=== PATIENT | male | born 1995 | race Two or more races ===

== ENCOUNTER 2022-10-09 10:27 | Outpatient (AMB) | payer OTHER, MEDICAID, SELFPAY ==
[2022-10-09 10:32] VITALS: BP 128/74; PULSE 84; RESP 12; TEMP 36.6; O2SAT 99; BMI 32.7
--- NOTE | 2022-10-09 10:32 | A.OFFPC_ITS ---
Vital Signs 10/09/22 10:32 Height 6 ft 1 in Weight 248 lb BMI 32.7 BP 128/74 Blood Pressure Location Lt brachial Position Sitting Respiration 12 Pulse 84 Pulse Source Pulse Oximeter Temp 97.9 F Temp Source Temporal Artery Scan Pulse Oximetry (%) 99 Oxygen Delivery Method Room Air Intake Visit Reasons: chest pain [facility] 09/13 Intake Note: Patient states that after work on the 09/13 he felt a tightening sensation starting from his left hand working its way up his arm. Patient states that the hospital gave him some medicine through IV to help with the tightness and pressure he was feeling but states it didn't work. Patient states that the hospital wrote him off as him having anxiety being the cause of what he was feeling. Patient states that his left arm feels drained . Patient would like a referral to cardiology and will be needing PCP to fill out medical leave papers. Project Associate Required: No Accompanied by: Self / Same As Patient Allergies No Known Allergies Allergy (Verified 10/09/22 14:46) Tobacco use date assessed: 10/09/22 Dental Screening Dental Screen Date: 10/09/22 Did you have a dental visit in the last 12 months?: No Did you have a dental problem in the last 6 months where you did not have access to dental care?: No Was dental information given to patient?: Yes HPI HPI Comments History of Present Illness Details 26-year-old male presents for ED visit follow-up. He was evaluated at [facility] ED on 09/12/2022 for chest pain. He was diagnosed with chest pain and anxiety attack. He was discharged home. Review of ED documentation revealed unremarkable labs, chest x-ray, and EKG. He reports continued tightness to his left upper chest and shoulder since his discharged from the ED. The pain sometimes improves with stretching of his left upper arm. He notes that he has not been able to return to work following ED discharge. He denies chest pain, MACKENZIE. He established care on . He was referred to a therapist; he notes he was contacted but never followed up. [facility] Medical History (Updated 10/09/22 @ 12:08 by Buddy Hardwick CNP) Acid reflux Depression Severe anxiety Surgical History No pertinent past surgical history Family History Mother No family history of mental disorder Asthma Hypertension High cholesterol Maternal Grandmother Hypertension Other Mental health disorder Substance abuse Social History Household Members: Family Housing: Apartment Alcohol intake: current Alcohol intake frequency: holidays/special occasions only Alcohol type: beer Patient Tobacco Use Status: Never used Tobacco e-Cigarette/Vaping Use: Former Use Substance Use Type: Marijuana Advance Directives: No Advance Directives Information Provided: Yes service: No Current occupational status: employed Current occupation: [employer] Cognitive needs: No Hearing needs: Yes Vision needs: No Questionnaire PHQ-9 Over the last 2 weeks, how often have you been bothered by any of the following problems? 1. Little interest or pleasure in doing things: nearly every day 2. Feeling down, depressed, or hopeless: more than half the days 3. Trouble falling or staying asleep, or sleeping too much: more than half the days 4. Feeling tired or having little energy: nearly every day 5. Poor appetite or overeating: several days 6. Feeling bad about yourself - or that you are a failure or have let yourself or your family down: not at all 7. Trouble concentrating on things, such as reading the newspaper or watching television: not at all 8. Moving or speaking so slowly that other people could have noticed. Or the opposite - being so fidgety or restless that you have been moving around a lot more than usual: not at all 9. Thoughts that you would be better off or of hurting yourself in some way: not at all Total score: 11 Depression Screening Interpretation: Positive Depression Screening Follow-up: Existing condition and Declines treatment Source: Developed by Drs. Dustin Brown, Jessica Vallejo, Pavan Colin and colleagues, with an educational kale from [employer]. Thrive Questionnaire Date Thrive assessed: 04/26/22 ISAURA-7 AMB Questionnaire ISAURA-7 Date ISAURA - 7 assessed: 10/09/22 Feeling nervous, anxious, or on edge: 3 = Nearly every day Not being able to stop or control worryin = More than half the days Worrying too much about different things: 3 = Nearly every day Trouble relaxin = More than half the days Being so restless that it is hard to sit still: 0 = Not at all Becoming easily annoyed or irritable: 2 = More than half the days Feeling afraid as if something awful might happen: 3 = Nearly every day Total ISAURA-7 score (0-4 normal; 5-9 mild; 10-14 moderate; 15-21 severe): 15 Source: Developed by Drs. Dustin Brown, Jessica Vallejo, Pavan Colin and colleagues, with an educational kale from [employer]. Review of Systems Const Details: Const Denies chills, Denies fatigue, Denies fever(s), Denies headache(s) and Denies weakness ENT Denies dizziness and Denies headache(s) Card Reports chest tightness, Denies chest pain, Denies lightheadedness, Denies dyspnea and Denies other (Palpitations) Resp Denies cough, Denies dyspnea, Denies wheezing and Denies other ( shortness of breath) GI Denies abdominal pain, Denies melena, Denies hematochezia, Denies change in bowel habits, Denies dyspepsia and Denies nausea Denies hematuria and Denies dysuria Musc Denies abnormal gait, Denies myalgias, Denies arthralgias, Denies numbness and Denies tingling Skin/Breast Denies rash, Denies unusual bruising and Denies wounds Neuro Denies abnormal gait, Denies dizziness, Denies headache(s), Denies memory loss, Denies numbness, Denies Sensory deficit (Neuro), Denies tingling and Denies weakness Psych Reports anxiety and Reports depression, Denies memory loss Endo Denies fatigue Aller/Immun Denies wheezing Physical exam (Primary Care) Vital Signs: Last Vital Signs Temp 97.9 F 10/09/22 10:32 Pulse 84 10/09/22 10:32 Resp 12 10/09/22 10:32 BP 128/74 10/09/22 10:32 Pulse Ox 99 10/09/22 10:32 Oxygen Delivery Method Room Air 10/09/22 10:32 BMI result Body Mass Index 32.7 Tobacco/Smoking Status: Tobacco use Status Tobacco use date assessed 10/09/22 10/09/22 10:46 Patient Tobacco Use Status Never used Tobacco 10/09/22 10:46 e-Cigarette/Vaping Use Former Use 10/09/22 10:46 PHQ-9: PHQ-9 Score PHQ-9: Total score 11 10/09/22 11:59 Depression Screening Interpretation: Positive Depression Screening Follow-up: Existing condition and Declines treatment Thrive Assessment: Date of Thrive Assessment Date Thrive assessed 04/26/22 10/09/22 10:46 Const Other: General: no acute distress and well developed Nutritional Appearance: well nourished Orientation/consciousness: patient oriented x3 HENMT Head: Yes normocephalic and Yes atraumatic Eyes General: appearance normal, both eyes and all related structures Pupils: Equal, round and reactive pupils present EOM: EOMs intact bilaterally Resp Effort & Inspection: normal respiratory effort Auscultation: clear to auscultation bilaterally Cardio Rate: regular rate Rhythm: regular rhythm Heart sounds: S1 normal heart sound present, S2 normal heart sound present, no gallops, no murmurs and no rubs GI Palpation (GI): No Abdominal aortic bruit present, Soft to palpation, nontender, No hepatosplenomegaly present and No Rebound tenderness present Auscultation: normal bowel sounds General: Yes no CVA tenderness Back/Spine/Pelvis Back: no CVA tenderness Cervical Spine: cervical ROM normal and No Cervical spine tenderness Thoracic/Lumbar Spine: thoraco-lumbar ROM normal, No pain with thoraco-lumbar ROM, No thoracic spinal tenderness and No lumbar spinal tenderness Extrem General: Yes normal to inspection, No edema and No calf tenderness Skin General: warm and dry. Normal skin color. Normal skin turgor Lesions: no lesions Rashes: no rashes Trauma: no lacerations or abrasions Wounds: no wounds Nails: normal Neuro General: patient oriented x3, gait normal and no focal neuro deficit Cranial nerves: Yes Equal, round and reactive pupils present Cognition (Neuro): normal cognition Gait exam (Neuro): Normal gait present Sensory Exam: No Sensory deficit (Neuro) Psych Affect: normal affect Assessment and Plan Assessment & Plan (1) Chest tightness: Code(s): R07.89 - Other chest pain Plan: 26-year-old male presents for ED visit follow-up. He was evaluated at [facility] ED on 09/12/2022 for chest pain. He was diagnosed with chest pain and anxiety attack. He was discharged home. Review of ED documentation revealed unremarkable labs, chest x-ray, and EKG. He reports continued tightness to his left upper chest and shoulder since his discharged from the ED. The pain sometimes improves with stretching of his left upper arm. He notes that he has not been able to return to work following ED discharge. He denies chest pain, MACKENZIE. EKG revealed normal sinus rhythm, CO depression, and widespread ST elevation Advised to immediately go to [facility] for further evaluation and treatment The MA called and gave report to [facility] and that the patient was on his way Dr. Westbrook consulted about this case and agreed with the plan. (2) Anxiety and depression: Code(s): F41.9 - Anxiety disorder, unspecified; F32.A - Depression, unspecified Plan: PHQ-9 and ISAURA-7 scores revealed moderate anxiety and severe depression respectively Declined treatment and therapy at this time Encouraged to inform his PCP if he changes mind on treatment Routine exercise encouraged Follow-up in 2-4 weeks or return sooner with worsening or new symptoms Verbalized understanding and agreed with treatment plan Coding Level of Care Code Est Pt Level 4 (47796) Diagnoses Chest tightness R07.89 Anxiety and depression F41.9; F32.A Time Spent (min) 35
== END 2022-10-09 12:46 | disposition home or self-care (01) ==
PROVIDERS: PCP Nurse Practitioner Family; Visit Provider Nurse Practitioner Family
DX: R07.89 Other chest pain (principal); F41.9 Anxiety disorder, unspecified; F32.A Depression, unspecified
CPT/HCPCS: 99214

== ENCOUNTER 2022-10-09 13:50 | Emergency (ER) | payer OTHER, MEDICAID, SELFPAY ==
--- NOTE | ~2022-10-09 | XR_ITS ---
EXAMINATION: XR CHEST CLINICAL INFORMATION: Left shoulder/chest pain radiating to heart area COMPARISON: None available. TECHNIQUE: 2 views of the chest were obtained. FINDINGS: No significant abnormality is noted involving the heart, lungs, mediastinum, bony thorax or soft tissues. XR/XR chest 2V IMPRESSION: No acute cardiopulmonary disease.
--- NOTE | 2022-10-09 13:52 | ECG_ITS ---
Test Reason : CHEST PAIN Blood Pressure : / mmHG Vent. Rate : 084 BPM Atrial Rate : 084 BPM P-R Int : 140 ms QRS Dur : 086 ms QT Int : 328 ms P-R-T Axes : 074 021 050 degrees QTc Int : 387 ms Normal sinus rhythm Normal ECG No previous ECGs available Referred By: Generic ED Physician Electronically Signed By:Sunday Hdz
--- NOTE | 2022-10-09 14:46 | ED.GENADULT ---
HPI - General Adult General Chief complaint: General Medical Stated complaint: abnormal ekg Related Data Home Medications Medication Instructions Recorded Confirmed No Known Home Meds 04/26/22 04/26/22 Allergies Allergy/AdvReac Type Severity Reaction Status Date / Time No Known Allergies Allergy Verified 10/09/22 14:46 [facility] Past Medical History Medical History (Updated 10/12/22 @ 19:38 by ALONA Wright) Acid reflux Depression Severe anxiety Surgical History No pertinent past surgical history Family History Family History Mother No family history of mental disorder Asthma Hypertension High cholesterol Maternal Grandmother Hypertension Other Mental health disorder Substance abuse Social History Social History Household Members: Family Housing: Apartment Alcohol intake: current Alcohol intake frequency: holidays/special occasions only Alcohol type: beer Patient Tobacco Use Status: Never used Tobacco e-Cigarette/Vaping Use: Former Use Substance Use Type: Marijuana Advance Directives: No Advance Directives Information Provided: Yes service: No Current occupational status: employed Current occupation: [employer] Cognitive needs: No Hearing needs: Yes Vision needs: No Physical Exam ED Vital Signs: BMI result Body Mass Index 32.3 Course Course Course Narrative: This is an RME: Additional HPI, ROS, PE not included below will be deferred to primary provider. This is a [id number]-male presenting to the emergency department with complaints of continued numbness in left arm and chest x 1 month, and shortness of breath. He was rushed to the [facility] in August had left tightness in his left arm radiating into his left chest. Went to [facility], and was told it was due to his anxiety, workup at hospital was normal. He went to his PCP today due to continued numbness/tingling in his left arm. Unable to work d/t his symptoms. Pt was seen at his PCP and was told that his EKG revealed acute pericarditis and was told to come to the ER for further evaluation. VSS. Plan: EKG, chest xray, labs ordered. Reevaluation(s) Reevaluation #1: Patient eloped prior to be fully evaluated. Medical Decision Making Lab Data 10/09/22 16:02 10/09/22 16:02 Labs: Lab Results 10/09/22 10/09/22 10/09/22 Range/Units 16:02 16:02 16:02 WBC 7.7 (4.8-10.8) X10*3/uL RBC 5.45 (4.60-5.80) X10*6/uL Hgb 16.0 (14.0-18.0) g/dl Hct 48.9 (42.0-52.0) % MCV 89.7 (80.0-98.0) fL MCH 29.4 (27.0-33.0) pg MCHC 32.7 (31.0-36.0) g/dl RDW 12.2 (11.0-16.0) % Plt Count 242 (160-400) X10*3/uL MPV 11.2 (9.4-12.4) fL Immature Gran % (Auto) 0.3 (0.0-0.4) % Neut % (Auto) 73.7 H (45-73) % Lymph % (Auto) 18.4 L (20-40) % [place] % (Auto) 6.7 (2-11) % Eos % (Auto) 0.3 (0-4) % Baso % (Auto) 0.6 (0-2) % Lymph # (Auto) 1.4 (1.2-4.9) X10*3/uL [place] # (Auto) 0.5 (0.1-1.2) X10*3/uL Eos # (Auto) 0.0 (0.0-0.4) X10*3/uL Baso # (Auto) 0.1 (0.0-0.2) X10*3/uL Abs Immat Gran (auto) 0.02 (0.00-0.03) X10*3/uL Absolute Neuts (auto) 5.7 (2.0-8.3) x10*3/uL Absolute Nucleated RBC 0.000 (0.0-0.012) X10*3/uL Nucleated RBC % (auto) 0.0 (0.0-0.2) /100WBC Sodium 138 (135-145) mmol/L Potassium 4.2 (3.3-5.1) mmol/L Chloride 103 (96-108) mmol/L Carbon Dioxide 26 (22-29) mmol/L Anion Gap 13 (12-20) BUN 12 (9-16) mg/dL Creatinine 1.11 (0.5-1.4) mg/dL Estim Creat Clear Calc 132.9 Estimated GFR > 60 Random Glucose 101 (60-115) mg/dL Calcium 9.9 (8.4-10.2) mg/dL Magnesium 2.0 (1.6-2.6) mg/dL Total Bilirubin 0.7 (0.0-1.0) mg/dL Direct Bilirubin 0.3 (0.0-0.5) mg/dL AST 20 (5-37) U/L ALT 25 (0-40) U/L Alkaline Phosphatase 86 (39-117) U/L Troponin I High Sens < 2.7 (<3.5-35.0) ng/L Total Protein 8.3 H (6.5-8.0) g/dL Albumin 4.8 (3.5-5.0) g/dL COVID-19 ([facility]) (Negative) COVID-19 Clin Com 10/09/22 Range/Units 16:02 WBC (4.8-10.8) X10*3/uL RBC (4.60-5.80) X10*6/uL Hgb (14.0-18.0) g/dl Hct (42.0-52.0) % MCV (80.0-98.0) fL MCH (27.0-33.0) pg MCHC (31.0-36.0) g/dl RDW (11.0-16.0) % Plt Count (160-400) X10*3/uL MPV (9.4-12.4) fL Immature Gran % (Auto) (0.0-0.4) % Neut % (Auto) (45-73) % Lymph % (Auto) (20-40) % [place] % (Auto) (2-11) % Eos % (Auto) (0-4) % Baso % (Auto) (0-2) % Lymph # (Auto) (1.2-4.9) X10*3/uL [place] # (Auto) (0.1-1.2) X10*3/uL Eos # (Auto) (0.0-0.4) X10*3/uL Baso # (Auto) (0.0-0.2) X10*3/uL Abs Immat Gran (auto) (0.00-0.03) X10*3/uL Absolute Neuts (auto) (2.0-8.3) x10*3/uL Absolute Nucleated RBC (0.0-0.012) X10*3/uL Nucleated RBC % (auto) (0.0-0.2) /100WBC Sodium (135-145) mmol/L Potassium (3.3-5.1) mmol/L Chloride (96-108) mmol/L Carbon Dioxide (22-29) mmol/L Anion Gap (12-20) BUN (9-16) mg/dL Creatinine (0.5-1.4) mg/dL Estim Creat Clear Calc Estimated GFR Random Glucose (60-115) mg/dL Calcium (8.4-10.2) mg/dL Magnesium (1.6-2.6) mg/dL Total Bilirubin (0.0-1.0) mg/dL Direct Bilirubin (0.0-0.5) mg/dL AST (5-37) U/L ALT (0-40) U/L Alkaline Phosphatase (39-117) U/L Troponin I High Sens (<3.5-35.0) ng/L Total Protein (6.5-8.0) g/dL Albumin (3.5-5.0) g/dL COVID-19 ([facility]) Negative (Negative) COVID-19 Clin Com See Note Discharge Plan Discharge Clinical Impression: Abnormal ECG Patient Disposition: Elopement Prescriptions: No Action No Known Home Meds Discharge Date/Time: 10/09/22 22:34
[2022-10-09 14:47] VITALS: BP 139/79; PULSE 74; RESP 16; TEMP 36.6; O2SAT 97; BMI 32.3
[2022-10-09 16:06] LABS: MANUAL DIFF FLAG NO
[2022-10-09 16:09] LABS: Basophils Absolute Auto 0.1 X10*3/uL (0.0-0.2); Basophils Percent Auto 0.6 % (0-2); Eosinophils Percent Auto 0.3 % (0-4); Hematocrit 48.9 % (42.0-52.0); Imm Gran Abs Auto 0.02 X10*3/uL (0.00-0.03); Imm Gran Pct Auto 0.3 % (0.0-0.4); Lymphocytes Absolute Auto 1.4 X10*3/uL (1.2-4.9); Lymphocytes Percent Auto 18.4 % (20-40); Mean Corpuscular HGB Conc 32.7 g/dl (31.0-36.0); Mean Corpuscular Hemoglobin 29.4 pg (27.0-33.0); Mean Corpuscular Volume 89.7 fL (80.0-98.0); Mean Platelet Volume 11.2 fL (9.4-12.4); Monocytes Absolute Auto 0.5 X10*3/uL (0.1-1.2); Monocytes Percent Auto 6.7 % (2-11); Neutrophils Absolute Auto 5.7 x10*3/uL (2.0-8.3); Neutrophils Percent Auto 73.7 % (45-73); Platelet Count 242 X10*3/uL (160-400); Red Blood Count 5.45 X10*6/uL (4.60-5.80); Red Cell Distribution Width 12.2 % (11.0-16.0); White Blood Count 7.7 X10*3/uL (4.8-10.8)
[2022-10-09 16:25] LABS: COVID-19 Test Negative (Negative); IDNOW Serial# 08D9AD1C
[2022-10-09 16:37] LABS: Troponin-I High Sensitivity < 2.7 ng/L (<3.5-35.0)
[2022-10-09 17:06] LABS: Alanine Aminotransferase 25 U/L (0-40); Albumin Level 4.8 g/dL (3.5-5.0); Alkaline Phosphatase 86 U/L (39-117); Anion Gap 13 (12-20); Aspartate Amino Transferase 20 U/L (5-37); Bilirubin Direct 0.3 mg/dL (0.0-0.5); Bilirubin Total 0.7 mg/dL (0.0-1.0); Blood Urea Nitrogen 12 mg/dL (9-16); Calcium 9.9 mg/dL (8.4-10.2); Carbon Dioxide 26 mmol/L (22-29); Chloride 103 mmol/L (96-108); Creatinine Clr Calc Pharmacy 132.9; Estimated Glomerular Filt Rate > 60; Glucose Random 101 mg/dL (60-115); Potassium 4.2 mmol/L (3.3-5.1); Sodium 138 mmol/L (135-145); Total Protein 8.3 g/dL (6.5-8.0)
== END 2022-10-09 22:34 | disposition left against medical advice (07) ==
PROVIDERS: Physician Assistant Medical; Emergency Provider Emergency Medicine; PCP Nurse Practitioner Family
DX: R94.31 Abnormal electrocardiogram [ECG] [EKG] (principal); Z20.822 Contact with and (suspected) exposure to COVID-19; F41.9 Anxiety disorder, unspecified; Z87.891 Personal history of nicotine dependence; F12.90 Cannabis use, unspecified, uncomplicated
CPT/HCPCS: 36415; 71046; 80048; 80076; 83735; 84484; 85025; 87635; 93005; 99283

== ENCOUNTER → 2022-10-09 13:52 | Outpatient (BNV) | payer OTHER, MEDICAID, SELFPAY | PROVIDERS: PCP Nurse Practitioner Family; Visit Provider Internal Medicine Cardiovascular Disease | DX: R07.9 Chest pain, unspecified (principal) | CPT/HCPCS: 93010 ==

== ENCOUNTER 2022-11-01 10:07 | Outpatient (AMB) | payer OTHER, MEDICAID, SELFPAY ==
--- NOTE | 2022-11-01 10:10 | MHC.OFFVIS ---
Intake Vital Signs 11/01/22 10:11 Height 6 ft 1 in Weight 244 lb 4.355 oz BMI 32.2 BP 110/78 Blood Pressure Location Lt brachial Position Sitting Pulse 92 Pulse Source Pulse Oximeter Intake Visit Reasons: [facility]IV[facility] [place]/CHEST PAIN ABNORMAL EKG Intake Note: New patient visit after recent visit to [facility] [place] for chest pain and abnormal EKG. 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 In August he went to [facility] with sudden onset left-sided arm pressure like feeling as well as chest tightness. He was also feeling some weakness and not sensation the left leg. He is saying that he was ruled out and was told that no obvious cause is found and this is anxiety. Since then he has persistent left arm discomfort which is present all the time. He is not physically active. He smokes marijuana occasionally. No other drug abuse. Occasionally walks his dog and does not get any symptoms while walking the dog. The left arm discomfort is present all the time and has been persistently there. He feels that left side of his body is weaker than the right side but has never seen a neurologist before. [facility] Medical History (Updated 11/01/22 @ 10:43 by Sunday Hdz MD) Acid reflux Depression Severe anxiety Surgical History No pertinent past surgical history Family History Mother No family history of mental disorder Asthma Hypertension High cholesterol Maternal Grandmother Hypertension Other Mental health disorder Substance abuse Social History (Updated 11/01/22 @ 10:15 by TANGELA Mccord) Household Members: Family Housing: Apartment Alcohol intake: current Alcohol intake frequency: holidays/special occasions only Alcohol type: beer Patient Tobacco Use Status: Never used Tobacco e-Cigarette/Vaping Use: Former Use Substance Use Type: Marijuana service: No Current occupational status: employed Current occupation: [employer] Cognitive needs: No Hearing needs: Yes Vision needs: No Review of Systems Const Denies weakness Eyes Denies loss of vision ENT Denies dizziness Card Denies chest pain, Denies chest pain with activity, Denies syncope, Denies rapid heart rate, Denies pedal edema, Denies edema, Denies leg edema, Denies lightheadedness, Denies palpitations, Denies dyspnea, Denies dyspnea on exertion and Denies orthopnea Resp Denies cough, Denies dyspnea, Denies dyspnea on exertion and Denies wheezing GI Denies hematochezia and Denies change in stool character Denies hematuria, Denies dysuria and Denies urinary frequency Musc Denies abnormal gait, Denies muscle cramps, Denies muscle weakness, Denies numbness, Denies radiating pain into limb and Denies tingling Skin/Breast Denies nail changes and Denies rash Neuro Denies Abnormal speech present, Denies abnormal gait, Denies dizziness, Denies syncope, Denies loss of vision, Denies memory loss, Denies numbness, Denies tingling and Denies weakness Psych Denies depression and Denies memory loss Endo Denies palpitations Aller/Immun Denies wheezing Physical Exam Vital Signs: Last Vital Signs Pulse 92 11/01/22 10:11 BP 110/78 11/01/22 10:11 BMI result Body Mass Index 32.2 GENERAL APPEARANCE: in no acute distress, pleasant. NECK: no carotid bruit, no jugular venous distention. SKIN: no suspicious lesions, warm and dry. HEART: no murmurs, regular rate and rhythm. LUNGS: clear to auscultation bilaterally. ABDOMEN: soft, nontender. EXTREMITIES: no edema. PERIPHERAL PULSES: equal. NEUROLOGIC: No gross deficits, AAO X 3 Neuro Speech: No Abnormal speech present Assessment & Plan Assessment & Plan (1) Arm pain, left: Code(s): M79.602 - Pain in left arm (2) Chest tightness: Code(s): R07.89 - Other chest pain Plan Pleasant 26 year gentleman who is here for assessment of chest discomfort and arm discomfort. Chest discomfort is non anginal and has resolved. Left arm discomfort is present for more than 2 months at this point and is persistent. Is denying any neck injury or pain. He also feels the left side of his body is weaker than the right side. By my exam there is no obvious findings. I am going to do some basic workup including CPK level just to rule out any muscular issue. Will also check a CRP to rule out any inflammatory process. Will check an echocardiogram to rule out structural heart issues. I have reassured him about the chest discomfort. For his left-sided subjective weakness he will follow-up with primary and may require further workup via Neurology if deemed appropriate. Thank you for allowing me to participate in the care of your patient. Please feel free to contact me if you have any questions. Orders: Orders CA echo transthoracic complete Today R07.89 - Other chest pain Creatine Kinase Total Today M79.602 - Pain in left arm CRP High Sensitivity Today M79.602 - Pain in left arm Coding Level of Care Code New Pt Level 4 (97258) Diagnoses Arm pain, left M79.602 Chest tightness R07.89
[2022-11-01 10:11] VITALS: BP 110/78; PULSE 92; BMI 32.2
== END 2022-11-01 10:43 | disposition home or self-care (01) ==
PROVIDERS: PCP Nurse Practitioner Family; Visit Provider Internal Medicine Cardiovascular Disease
DX: M79.602 Pain in left arm (principal); R07.89 Other chest pain
CPT/HCPCS: 99214

== ENCOUNTER → 2022-11-01 10:07 | Outpatient (BNVA) | payer OTHER, MEDICAID, SELFPAY | PROVIDERS: PCP Nurse Practitioner Family; Visit Provider Internal Medicine Cardiovascular Disease ==

== ENCOUNTER 2023-05-18 10:26 | Outpatient (AMB) | payer OTHER, SELFPAY ==
[2023-05-18 10:33] VITALS: BP 126/80; PULSE 93; RESP 13; TEMP 36.4; O2SAT 97; BMI 31.5
--- NOTE | 2023-05-18 10:33 | A.OFFPC_ITS ---
Vital Signs 05/18/23 10:33 Height 6 ft 1 in Weight 239 lb BMI 31.5 BP 126/80 Blood Pressure Location Rt brachial Position Sitting Respiration 13 Pulse 93 Pulse Source Pulse Oximeter Temp 97.5 F Temp Source Temporal Artery Scan Pulse Oximetry (%) 97 Oxygen Delivery Method Room Air Intake Visit Reasons: ED [facility] 04/11/23-Diarrhea/Blood in Stool Supply Technician Required: No Accompanied by: Self / Same As Patient Allergies No Known Allergies Allergy (Verified 05/18/23 10:56) Medication List - Last Reconciled 05/18/23 by Buddy Hardwick CNP No Known Home Meds Tobacco use date assessed: 05/18/23 Dental Screening Dental Screen Date: 05/18/23 Did you have a dental visit in the last 12 months?: Yes Did you have a dental problem in the last 6 months where you did not have access to dental care?: No Was dental information given to patient?: Patient has dentist HPI HPI Comments History of Present Illness Details 27-year-old male presents for a follow-u p visit He notes that he was evaluated at an urgent care earlier this month for blood in his stool. He notes that stool culture was positive for E coli and he was advised to go to ED. He states that he was evaluated at [facility] ED on 05/11/2023; E coli was confirmed and was given Ibuprofen for abdominal cramps. He notes that he has had intermittent suprapubic abdominal cramps and dark red blood in his stool for the past 3 weeks. He notes that his stools have been have small watering stools. He reports abdominal cramps especially when i drink acidic stuff like orange juice and lemonade. Review [facility] ED notes indicates that on 04/19/2023, the patient was evaluated and treated for numbness and weakness to his entire left side of his body extending from his face to his arms and legs. He notes that his symptoms were ongoing for the past few months. He reported new onset of shortness of breath. Head/neck CT, EKG, and labs were reassuring. He was prescribed clindamycin 300 mg 3 times daily times 14 days for a tooth cavity that was revealed by CT. He was advised to follow-up with his dentist. Review [facility] ED notes indicates that on 05/11/2023, the patient was evaluated for abdominal cramping and 10 days of bloody stools. He had to start his performing tested positive for Shiga toxin E. coli. Interested negative for C diff. his workup was reassuring. CBC, CMP, and urinalysis were normal. No evidence of TTP/HUS. He was informed there is no specific treatment for Shiga toxin E coli. He was discharged home with instructions for supportive care. [facility] Medical History Acid reflux Depression Severe anxiety Surgical History No pertinent past surgical history Family History Mother No family history of mental disorder Asthma Hypertension High cholesterol Maternal Grandmother Hypertension Other Mental health disorder Substance abuse Social History Household Members: Family Housing: Apartment Alcohol intake: current Alcohol intake frequency: holidays/special occasions only Alcohol type: beer Patient Tobacco Use Status: Never used Tobacco e-Cigarette/Vaping Use: Former Use Substance Use Type: Marijuana service: No Current occupational status: unemployed Cognitive needs: No Hearing needs: Yes Vision needs: No Questionnaire Thrive Questionnaire Date Thrive assessed: 04/26/22 ISAURA-7 AMB Questionnaire ISAURA-7 Date ISAURA - 7 assessed: 10/09/22 Source: Developed by Drs. Dustin Brown, Jessica Vallejo, Pavan Colin and colleagues, with an educational kale from [employer]. Review of Systems Const Details: Const Denies chills, Denies fatigue, Denies fever(s), Denies headache(s) and Denies weakness ENT Denies dizziness and Denies headache(s) Card Denies chest pain, Denies lightheadedness, Denies dyspnea and Denies other (Palpitations) Resp Denies cough, Denies dyspnea, Denies wheezing and Denies other ( shortness of breath) GI Reports abdominal pain, Reports blood in stool, Denies hematochezia, Reports diarrhea, Denies dyspepsia and Denies nausea Denies hematuria and Denies dysuria Musc Denies abnormal gait, Denies myalgias, Denies arthralgias, Denies numbness and Denies tingling Skin/Breast Denies rash, Denies unusual bruising and Denies wounds Neuro Denies abnormal gait, Denies dizziness, Denies headache(s), Denies memory loss, Denies numbness, Denies Sensory deficit (Neuro), Denies tingling and Denies weakness Psych Denies anxiety, Denies depression, Denies memory loss Endo Denies cold intolerance, Denies fatigue, Denies heat intolerance, Denies polydipsia and Denies polyuria Aller/Immun Denies wheezing Physical exam (Primary Care) Vital Signs: Last Vital Signs Temp 97.5 F 05/18/23 10:33 Pulse 93 05/18/23 10:33 Resp 13 05/18/23 10:33 BP 126/80 05/18/23 10:33 Pulse Ox 97 05/18/23 10:33 Oxygen Delivery Method Room Air 05/18/23 10:33 BMI result Body Mass Index 31.5 Tobacco/Smoking Status: Tobacco use Status Tobacco use date assessed 05/18/23 05/18/23 10:40 Patient Tobacco Use Status Never used Tobacco 05/18/23 10:40 e-Cigarette/Vaping Use Former Use 05/18/23 10:40 Thrive Assessment: Date of Thrive Assessment Date Thrive assessed 04/26/22 05/18/23 10:40 Const Other: General: no acute distress and well developed Nutritional Appearance: well nourished Orientation/consciousness: patient oriented x3 HENMT Head: Yes normocephalic and Yes atraumatic Eyes General: appearance normal, both eyes and all related structures Pupils: Equal, round and reactive pupils present EOM: EOMs intact bilaterally Resp Effort & Inspection: normal respiratory effort Auscultation: clear to auscultation bilaterally Cardio Rate: regular rate Rhythm: regular rhythm Heart sounds: S1 normal heart sound present, S2 normal heart sound present, no gallops, no murmurs and no rubs GI Palpation (GI): No Abdominal aortic bruit present, Soft to palpation, tender suprapubic region, No hepatosplenomegaly present and No Rebound tenderness present Auscultation: normal bowel sounds General: Yes no CVA tenderness Back/Spine/Pelvis Back: no CVA tenderness Cervical Spine: cervical ROM normal and No Cervical spine tenderness Thoracic/Lumbar Spine: thoraco-lumbar ROM normal, No pain with thoraco-lumbar ROM, No thoracic spinal tenderness and No lumbar spinal tenderness Extrem General: Yes normal to inspection, No edema and No calf tenderness Skin General: warm and dry. Normal skin color. Normal skin turgor Neuro General: patient oriented x3, gait normal and no focal neuro deficit Cranial nerves: Yes Equal, round and reactive pupils present Cognition (Neuro): normal cognition Gait exam (Neuro): Normal gait present Sensory Exam: No Sensory deficit (Neuro) Psych Appearance: grossly normal Affect: normal affect Attitude: cooperative Thought process: Normal thought process present Assessment and Plan Assessment & Plan (1) Bloody stools: Code(s): K92.1 - Melena Plan: Bloody stools, suprapubic cramping, and diarrhea x3 weeks Recently worked up with positiveShiga toxin E. Coli, no C diff, no evidence of TTP/HUS. CBC, CMP and urinalysis were normal Suprapubic tenderness to palpation May take Tylenol as needed for pain or discomfort Supportive therapy such as anh or mint tea encouraged Metamucil as prescribed for diarrhea Referred to Gastroenterology Advised to follow-up with PCP for anxiety and depression as planned Return with worsening or new symptoms Verbalized understanding and agreed with treatment plan (2) Diarrhea: Code(s): R19.7 - Diarrhea, unspecified Plan: As above (3) Suprapubic cramping: Code(s): R10.2 - Pelvic and perineal pain Plan: As above Orders: Referrals Gastroenterology Referral K92.1 - Melena, R10.2 - Pelvic and perineal pain, R19.7 - Diarrhea, unspecified Medications: New psyllium husk (Metamucil) mix into at least 8 oz of water or juice before administering. May increase to twice daily if no improvement after 1 week 1 tbsp PO DAILY 660 grams 0RF Coding Level of Care Code Est Pt Level 4 (90518) Diagnoses Bloody stools K92.1 Diarrhea R19.7 Suprapubic cramping R10.2
== END 2023-05-18 12:33 | disposition home or self-care (01) ==
PROVIDERS: PCP Nurse Practitioner Family; Visit Provider Nurse Practitioner Family
DX: K92.1 Melena (principal); R19.7 Diarrhea, unspecified; R10.2 Pelvic and perineal pain
CPT/HCPCS: 99214

== ENCOUNTER 2024-12-17 11:17 | Outpatient (REF) | payer OTHER, SELFPAY ==
[2024-12-17 12:17] LABS: Hematocrit 46.7 % (42.0-52.0); Hemoglobin 15.5 g/dl (14.0-18.0); Mean Corpuscular HGB Conc 33.2 g/dl (31.0-36.0); Mean Corpuscular Hemoglobin 29.3 pg (27.0-33.0); Mean Corpuscular Volume 88.3 fL (80.0-98.0); NRBC Abs Auto 0.000 X10*3/uL (0.0-0.012); NRBC Pct Auto 0.0 /100WBC (0.0-0.2); Platelet Count 216 X10*3/uL (160-400); Red Blood Count 5.29 X10*6/uL (4.60-5.80); White Blood Count 5.8 X10*3/uL (4.8-10.8)
== END 2024-12-17 11:18 | disposition home or self-care (01) ==
LOC: HO.LAB 11:17
PROVIDERS: PCP Nurse Practitioner Family; Visit Provider Internal Medicine
DX: K92.1 Melena (principal); R19.7 Diarrhea, unspecified
CPT/HCPCS: 36415; 85027; 99202

== ENCOUNTER 2024-12-17 11:17 | Outpatient (AMB) | payer MEDICAID, SELFPAY ==
--- NOTE | 2024-12-17 11:19 | MHC.OFFVIS ---
Vital Signs 12/17/24 11:21 Height 6 ft 1 in Weight 253 lb 8.505 oz BMI 33.4 BP 154/85 H Blood Pressure Location Lt brachial Position Sitting Pulse 97 Intake Visit Reasons: melena, diarrhea, pelvic and perineal pains Intake Note: Ty presents in the office as a new patient for melena, diarrhea, pelvic and perineal pains. CC: States that he is no longer having blood in the stools but last year he had it bad. He was diagnosed with E Coli and was given treatment for it. He is not bleeding anymore. Diarrhea has gotten better but the pains in the RUQ / Flank area. States that it almost feels like a lump that moves. PCP Director Of Oncology Required: No Allergies No Known Allergies Allergy (Verified 12/17/24 11:21) HPI Comments Details: 29 y.o M with no sig PMH who is here for rectal bleeding. Referral was placed over a year ago and pt has not been seen by a PCP since then. Reports onset of sx 1.5 years ago. Noticed blood in stool and even without stool. Stools were soft. No abd pain. These sx resolved since fall 2023. Now main complaint is sensation of abd mass in lower abd with increased urinary freq. Still cont to have intermittent soft to loose stools. Reports his younger brother also got GI work up done for similar sx but hes unsure of dx. [facility] Medical History Acid reflux Depression Severe anxiety Surgical History No pertinent past surgical history Family History Mother No family history of mental disorder Asthma Hypertension High cholesterol Maternal Grandmother Hypertension Other Mental health disorder Substance abuse Social History Household Members: Family Housing: Apartment Alcohol intake: current Alcohol intake frequency: holidays/special occasions only Alcohol type: beer Patient Tobacco Use Status: Never used Tobacco e-Cigarette/Vaping Use: Former Use Substance Use Type: Marijuana service: No Current occupational status: unemployed Cognitive needs: No Hearing needs: Yes Vision needs: No Review of Systems Const All systems reviewed & are unremarkable except as noted in HPI and below Physical Exam Exam Exam: No apparent distress Nonicteric Abdomen soft, nondistended Alert and oriented x3, normal gait Vital Signs: Last Vital Signs Pulse 97 12/17/24 11:21 BP 154/85 H 12/17/24 11:21 BMI result Body Mass Index 33.4 Assessment & Plan Assessment & Plan (1) Bloody stools: Code(s): K92.1 - Melena Category: Medical (2) Diarrhea: Code(s): R19.7 - Diarrhea, unspecified Category: Medical (3) Suprapubic cramping: Code(s): R10.2 - Pelvic and perineal pain Category: Medical Plan Ddx include IBD, hemorrhoidal bleeding, diverticular disease. Currently no blood in stools but has altered BM pattern. Plan: - Diagnostic colo to be booked - PEG prep Rxed and instructions reviewed - Follow up after colo Orders: Orders Complete Blood Count no Diff Today K92.1 - Melena Referrals GI Procedure Notification K92.1 - Melena Medications: New peg 3350-electrolytes 236-22.74-6.74 -5.86 gram (Golytely) as per split prep instructions, until fecal effluent is clear 240 mL PO Q10M 4,000 mL 0RF colonoscopy Discontinued psyllium husk (Metamucil) mix into at least 8 oz of water or juice before administering. May increase to twice daily if no improvement after 1 week Discontinued Reason: Patient Completed Course 1 tbsp PO DAILY 660 grams 0RF Coding Level of Care Code New Pt Level 4 (62002) Diagnoses Bloody stools K92.1 Diarrhea R19.7 Suprapubic cramping R10.2
[2024-12-17 11:21] VITALS: BP 154/85; PULSE 97; BMI 33.4
--- OUTSIDE RECORDS SUMMARY | 2024-12-17 14:28 | XMS_ITS | Clinical Summary ---
Author Organization [employer] Address [address] [place] [address] Care Team Providers Care Splitter Machine Name Role Phone Unavailable Primary Care Provider Unavailabl e Encounters Date Type Department Care Team Description 12/11/2024 Patient Outreach [facility] [address] [place] [address] Yoshi Husain MD Pre-visit Planning (Pre visit planning unable to LVM ) from Last 3 Months Social History Tobacco Use Types Packs/Day Years Used Date Smoking Tobacco: Never Assessed Sex and Gender Information Value Date Recorded Sex Assigned at Male 04/24/2023 2:07 PM EST Legal Sex Male 2:06 PM EST Gender Identity Male 12/17/2024 9:57 AM EDT Sexual Orientation Straight 12/17/2024 9: 57 AM EDT Plan of Treatment Upcoming Encounters Date Type Department Care Team (Late st Contact Info) Description 12/18/2024 10:45 AM EDT Office Visit [facility] [address] [place] [address] Tami Lau MD [address] [place] [address] Health Maintenance Due Date Last Done Comments Depression Screening 1996 HIV Screening 1996 SDOH Screening 1996 Disability Screening 1996 Alcohol/Substance Use Screening 2008 Tobacco Screening 2008 Family Planning (PISQ) 12/03/2011 Hepatitis C Screening 2014 DTaP/Tdap/Td Vaccines (8 - Td or Tdap) 11/01/2023 10/31/2013, 05/26/2008, 12/13/2001, Additional history exists COVID-19 Vaccine ( season) 2024 Influenza Vaccine (#1) 2024 5, 04/04/2013, 12/29/2011 Zoster Vaccines (1 of 2) 2046 RSV Patients and Patients Aged 60 years or older (1 - 1-dose 75+ series) 12/03/2071 Hepatitis B Vaccines Completed 06/16/1997, 02/12/1997, 1996 HIB Vaccines Completed 03/09/1998, 05/25, 04/09/1997, Additional history exists IPV Vaccines Completed 12/13/2001, 05/24, 04/09/1997, Additional history exists Meningococcal Vaccine Completed 04/04/2013, 009 HPV Vaccines Completed 10/31/2013, 05/25, 04/04/2013 Hepatitis A Vaccines Aged Out 11/17/2016 No long er eligible based on patient's age to complete this topic Meningococcal B Vaccine Aged Out No l onger eligible based on patient's age to complete this topic Pneumococcal Vaccine: Pediatrics (0 to 5 Years) and At-Risk Patients (6 to 49) Years Aged Out No longer eligible based on patient's age to complete this topic RSV under 20 months Aged Out No longe r eligible based on patient's age to complete this topic Rotavirus Vaccines Aged Out No longer eligible based on patient's age to complete this topic [place] [place] [address] C3
== END 2024-12-17 12:17 | disposition home or self-care (01) ==
PROVIDERS: PCP Nurse Practitioner Family; Visit Provider Internal Medicine
DX: K92.1 Melena (principal); R19.7 Diarrhea, unspecified; R10.2 Pelvic and perineal pain
CPT/HCPCS: 99204

== ENCOUNTER 2025-01-08 08:36 | Day surgery (SDC) | payer MEDICAID, SELFPAY ==
--- OUTSIDE RECORDS SUMMARY | 2024-12-18 10:45 | XMS_ITS | Encounter Summary ---
Author Organization [employer] Address [address] [facility] 7[address] [place] [address] Care Team Providers Care Canteen Manager Name Role Phone Tami Lau MD Primary Care Provider [phone] Reason for Referral * Consultation (Routine) - Authorized Specialty Diagnoses / Procedures Referred By Ngozi langford Referred To Contact Audiology Diagnoses Sensorineural hearing loss (SNHL), unspecified laterality Tami Lau MD [address] [place], [place] [id number] Phone: tel: fax: [facility], Audiology [address] Phone: tel: fax: Referral ID Status Reason Start Date Expiration Date Visits Requested Visits Authorized [id number] Authorized Specialty Services Required 12/18/2024 12/18/2025 1 1 * Consultation (Routine) - Pending Review Specialty Diagnoses / Procedures Referred By Ngozi langford Referred To Contact Otolaryngology Diagnoses Sensorineural hearing loss (SNHL), unspecified laterality Tami Lau MD [address] [place] [address] Phone: tel: fax: Referral ID Status Reason Start Date Expiration Date Visits Requested Visits Authorized [id number] Pending Review Specialty Services Required 12/18/2024 12/18/2025 1 1 * Imaging (Routine) - Authorized Specialty Diagnoses / Procedures Referred By Ngozi langford Referred To Contact Radiology Diagnoses Chronic left-sided headaches Dizziness of unknown cause Sensorineural hearing loss (SNHL), unspecified laterality Procedures Mr Brain w/ and w/o Contrast Tami Lau MD [address] [place] [address] Phone: tel: fax: [address] Phone: tel: fax: Referral ID Status Reason Start Date Expiration Date V isits Requested Visits Authorized [id number] Authorized 12/18/2024 12/18/2025 1 1 Reason for Visit * Reason Comments Establish Care Encounter Details Date Type Department Care Team (Late st Contact Info) Description 12/18/2024 10:45 AM EDT Office Visit [facility] MED & PEDS [address] [place] [address] Tami Lau MD [address] [place] [address] Encounter for immunization (Primary Dx); Encounter for health-related screening; Blood in stool; Chronic left-sided headaches; Dizziness of unknown cause; Sensorineural hearing loss (SNHL), unspecified laterality; Chronic abdominal pain; Class 1 obesity Social History Tobacco Use Types Packs/Day Years Used Date Smoking Tobacco: Never Passive Smoke Exposure: Current Smokeless Tobacco: Never Tobacco Cessation:Counseling Given: Not Answered Alcohol Use Standard Drinks/Week Comments Yes 0 (1 standard drink = 0.6 oz pur e alcohol) Social/irregular Sex and Gender Information Value Date Recorded Sex Assigned at Male 04/24/2023 2:07 PM EST Legal Sex Male 2:06 PM EST Gender Identity Male 12/17/2024 9:57 AM EDT Sexual Orientation Straight 12/17/2024 9: 57 AM EDT documented as of this encounter Last Filed Vital Signs Vital Sign Reading Time Taken Comments Blood Pressure 134/80 12/18/2024 10:22 AM EDT Pulse 80 12/18/2024 10:22 AM EDT Temperature 37.1 C (98.7 F) 12/18/2024 10:22 AM EDT Respiratory Rate 20 12/18/2024 10:22 AM EDT Oxygen Saturation 98% 12/18/2024 10:22 AM EDT Inhaled Oxygen Concentration - - Weight 114 kg (252 lb) 12/18/2024 10:22 AM EDT Height 185.4 cm (6' 1 ) 12/18/2024 10:22 AM EDT Body Mass Index 33.25 12/18/2024 10:22 AM EDT documented in this encounter Progress Notes * Tami Lau MD - 12/18/2024 10:45 AM EDT Subjective Patient ID: Ty Jurado is a 29 y.o. male who presents for Establish Care. Previous PCP: [facility] PMH: chronic migraine headaches, hearing loss, chronic abdominal pain Psurghx: None All: NKDA Meds: reviewed Concerns: Reports chronic intermittent abdominal pain, reports he saw [facility] [place] [place] [facility] recently and reports was scheduled for a colonoscopy, reports labs were ordered. C/o chronic left sided headaches, reports he feels a weird sensation on his left scalp coming down to his left lateral neck, pressure vs pulsation, reports using mother's excedrin for pain control,having almost daily headaches C/o left ear hearing loss (chronic), has not followed with audiology or ENT C/o persistent intermittent dizziness, vertigo like. Reports has gone to the ED with this concern. Unknown etiology. Review of Systems Constitutional: Negative for appetite change, fatigue and fever. HENT: Negative for congestion, postnasal drip and rhinorrhea. Eyes: Negative for discharge and redness. Respiratory: Negative for apnea, cough, chest tightness and shortness of breath. Cardiovascular: Negative for chest pain. Gastrointestinal: Positive for abdominal pain. Negative for rectal pain and vomiting. Endocrine: Negative for polyphagia. Genitourinary: Negative for difficulty urinating, dysuria and urgency. Musculoskeletal: Negative for arthralgias. Neurological: Positive for dizziness, numbness and headaches. Negative for tremors, speech difficulty, weakness and light-headedness. Hematological: Negative for adenopathy. Does not bruise/bleed easily. Objective BP 134/80 Pulse 80 Temp 98.7 ??F (37.1 ??C) (Oral) Resp 20 Ht 6' 1 (1.854 m) Wt 252 lb (114 kg) SpO2 98% BMI 33.25 kg/m?? Physical Exam Constitutional: General: He is not in acute distress. Appearance: He is not ill-appearing. HENT: Head: Normocephalic and atraumatic. Nose: No congestion. Pulmonary: Effort: Pulmonary effort is normal. No respiratory distress. Breath sounds: Normal breath sounds. Abdominal: General: Abdomen is flat. Bowel sounds are normal. There is no distension. Palpations: Abdomen is soft. There is no hepatomegaly, splenomegaly or mass. Tenderness: There is no abdominal tenderness. Musculoskeletal: Cervical back: Normal range of motion. Neurological: General: No focal deficit present. Mental Status: He is alert. Psychiatric: Mood and Affect: Mood normal. Assessment/Plan Problem List Items Addressed This Visit Class 1 obesity Discussed calorie deficit, recommended reduction of 20-30% of maintenance calories; outside cutter hand referral offered. Recommended to decrease soda and sugary beverage consumption. Recommended at least 20 g per meal of protein to assist with satiety. Recommended at least 150 min/week of moderate intensity exercise. Relevant Medications topiramate (Topamax) 50 MG tablet Sensorineural hearing loss Diagnosis since 2012. Has not followed up, will refer to audiology and ENT. Relevant Medications hydrOXYzine HCl (Atarax) 25 MG tablet Other Relevant Orders Mr Brain w/ and w/o Contrast Referral to ENT Referral to Audiology Blood in stool Chronic abdominal pain Unknown etiology, already established with GI. Benign abdominal exam. Given chronicity of pain differential diagnosis IBS vs IBD. Will send lab testing, he has upcoming colonoscopy. Request records and followup. Relevant Orders CBC auto differential Comprehensive Metabolic Panel C-reactive Protein Celiac Disease Comprehensive Panel Calprotectin, Stool Chronic left-sided headaches Unknown etiology, had CT head done in 2021 which was benign, but now presented with neurological symptoms associated with the headache, including dizziness and numbness. Acute on chronic hearing loss, will proceed with imaging to r/o intra- cranial pathology as etiology of symptoms, pending imaging will proceed with referral to neurology. Will send trial of topamax for headache ppx & excedrin f or pain control Relevant Medications topiramate (Topamax) 50 MG tablet caclgko-duhdycelvubwq-emfsccaq (Excedrin Migraine) 250-250-65 MG tablet Other Relevant Orders Mr Brain w/ and w/o Contrast Dizziness of unknown cause Unknown etiology, vertigo like symptoms, will hearing loss, numbness and description concern for central vs peripheral vertigo, will proceed with imaging to r/o intracranial pathology. Relevant Orders Mr Brain w/ and w/o Contrast Other Visit Diagnoses Encounter for immunization - Primary Relevant Orders TDAP VACCINE 7 yrs + (Completed) Encounter for health-related screening Relevant Orders HIV-1/2 Antigen and Antibodies, Fourth Generation, with Reflexes Hepatitis C Antibody with Reflex to HCV, RNA, Quantitative, Real-Time PCR documented in this encounter Miscellaneous Notes * Assessment & Plan Note - Tami Lau MD - 12/19/2024 9:06 AM EDT Associated Problem(s): Dizziness of unknown cause Unknown etiology, vertigo like symptoms, will hearing loss, numbness and description concern for central vs peripheral vertigo, will proceed with imaging to r/o intracranial pathology. * Assessment & Plan Note - Tami Lau MD - 12/19/2024 9:05 AM EDT Associated Problem(s): Chronic left-sided headaches Unknown etiology, had CT head done in 2021 which was benign, but now presented with neurological symptoms associated with the headache, including dizziness and numbness. Acute on chronic hearing loss, will proceed with imaging to r/o intra- cranial pathology as etiology of symptoms, pending imaging will proceed with referral to neurology. Will send trial of topamax for headache ppx & excedrin f or pain control * Assessment & Plan Note - Tami Lau MD - 12/19/2024 9:04 AM EDT Associated Problem(s): Chronic abdominal pain Unknown etiology, already established with GI. Benign abdominal exam. Given chronicity of pain differential diagnosis IBS vs IBD. Will send lab testing, he has upcoming colonoscopy. Request records and followup. * Assessment & Plan Note - Tami Lau MD - 12/19/2024 8:57 AM EDT Associated Problem(s): Class 1 obesity Discussed calorie deficit, recommended reduction of 20-30% of maintenance calories; outside cutter hand referral offered. Recommended to decrease soda and sugary beverage consumption. Recommended at least 20 g per meal of protein to assist with satiety. Recommended at least 150 min/week of moderate intensity exercise. * Assessment & Plan Note - Tami Lau MD - 12/19/2024 8:56 AM EDT Associated Problem(s): Sensorineural hearing loss Diagnosis since 2012. Has not followed up, will refer to audiology and ENT. documented in this encounter Plan of Treatment Upcoming Encounters Date Type Department Care Team (Late st Contact Info) Description 02/16/2025 2:00 PM EST Office Visit [facility] [address] [place] [address] Tami Lau MD [address] [place] [address] Scheduled Orders Name Type Priority Associated Diagnoses Orde r Schedule HIV-1/2 Antigen and Antibodies, Fourth Generation, with Reflexes Lab Routine Encounter for health-related screening Expected: 12/18/2024 (Approximate), Expires: 12/18/2025 Hepatitis C Antibody with Reflex to HCV, RNA, Quantitative, Real-Time PCR Lab Routine Encounter for health-related screening Expected: 12/18/2024, Expires: 12/18/2025 Mr Brain w/ and w/o Contrast Imaging Routine Chronic left-sided headaches Dizziness of unknown cause Sensorineural hearing loss (SNHL), unspecified laterality Expected: 12/18/2024, Expires: 12/18/2025 CBC auto differential Lab Routine Chronic abdominal pain Expected: 12/18/2024 (Approximate), Expires: 12/18/2025 Comprehensive Metabolic Panel Lab Routine Chronic abdominal pain Expected: 12/18/2024 (Approximate), Expires: 12/18/2025 C-reactive Protein Lab Routine Chronic abdominal pain Expected: 12/18/2024 (Approximate), Expires: 12/18/2025 Celiac Disease Comprehensive Panel Lab Routine Chronic abdominal pain Expected: 12/18/2024, Expires: 12/18/2025 Calprotectin, Stool Lab Routine Chronic abdominal pain Expected: 12/18/2024, Expires: 12/18/2025 Scheduled Referrals Name Type Priority Associated Diagnoses Orde r Schedule Referral to ENT Outpatient Referral Routine Sensorineural hearing loss (SNHL), unspecified laterality Expected: 12/18/2024 (Approximate), Expires: 12/18/2025 Referral to Audiology Outpatient Referral Routine Sensorineural hearing loss (SNHL), unspecified laterality Expected: 12/18/2024 (Approximate), Expires: 12/18/2025 documented as of this encounter Visit Diagnoses Diagnosis Encounter for immunization- Primary Encounter for health-related screening Blood in stool Chronic left-sided headaches Headache Dizziness of unknown cause Sensorineural hearing loss (SNHL), unspecified laterality Chronic abdominal pain Abdominal pain, unspecified site Class 1 obesity documented in this encounter Care Teams Canteen Manager Relationship Specialty Start Date End Date Tami Lau MD [address] [place] [id number] PCP - General Family Medicine 12/18/24 documented as of this encounter
--- OUTSIDE RECORDS SUMMARY | 2024-12-19 13:59 | XMS_ITS | Encounter Summary ---
Author Organization [employer] [facility] Address [address] [facility] 7t [place] [address] Care Team Providers Care Director Drug Name Role Phone Tami Lau MD Primary Care Provider [phone] Encounter Details Date Type Department Care Team (Latest Contact Info) Description 12/18/2024 Travel Social History Tobacco Use Types Packs/Day Years Used Date Smoking Tobacco: Never Passive Smoke Exposure: Current Smokeless Tobacco: Never Alcohol Use Standard Drinks/Week Comments Yes 0 (1 standard drink = 0.6 oz pur e alcohol) Social/irregular Sex and Gender Information Value Date Recorded Sex Assigned at Male 04/24/2023 2:07 PM EST Legal Sex Male 2:06 PM EST Gender Identity Male 12/17/2024 9:57 AM EDT Sexual Orientation Straight 12/17/2024 9: 57 AM EDT documented as of this encounter Plan of Treatment Upcoming Encounters Date Type Department Care Team (Late st Contact Info) Description 02/16/2025 2:00 PM EST Office Visit [facility] PEDS [address] [place] [address] Tami Lau MD [address] [place] [address] documented as of this encounter Visit Diagnoses Not on filedocumented in this encounter Care Teams Director Drug Relationship Specialty Start Date End Date Tami Lau MD [address] [place] [address] PCP - General Family Medicine 12/18/24 documented as of this encounter
--- OUTSIDE RECORDS SUMMARY | 2024-12-19 13:59 | XMS_ITS | Clinical Summary ---
Author Organization [employer] Address [address] [facility] 7[address] [place] [address] Care Team Providers Care Painter Spray Name Role Phone Tami Lau MD Primary Care Provider [phone] Allergies No known active allergies Medications hydrOXYzine HCl (Atarax) 25 MG tablet Take 25 mg by mouth if needed in the morning, at noon, and at bedtime. 09/23/2020 Active topiramate (Topamax) 50 MG tabletIndicatio ns:Chronic left-sided headaches Take 1 tablet (50 mg) by mouth at bedtime. 90 tablet 1 12/18/2024 Active aspirin-acetami nophen-caffeine (Excedrin Migraine) 250-250-65 MG tabletIndicatio ns:Chronic left-sided headaches Take 2 tablets by mouth every 8 (eight) hours if needed for headaches. 90 tablet 12/18/2024 Active Active Problems Problem Noted Date Diagnosed Date Chronic abdominal pain 12/19/2024 Assessment & Plan (12/19/2024 9:04 AM EDT): Unknown etiology, already established with GI. Benign abdominal exam. Given chronicity of pain differential diagnosis IBS vs IBD. Will send lab testing, he has upcoming colonoscopy. Request records and followup. Chronic left-sided headaches 12/19/2024 Assessment & Plan (12/19/2024 9:05 AM EDT): Unknown etiology, had CT head done in 2021 which was benign, but now presented with neurological symptoms associated with the headache, including dizziness and numbness. Acute on chronic hearing loss, will proceed with imaging to r/o intra-cranial pathology as etiology of symptoms, pending imaging will proceed with referral to neurology. Will send trial of topamax for headache ppx & excedrin for pain control Dizziness of unknown cause 12/19/2024 Assessment & Plan (12/19/2024 9:06 AM EDT): Unknown etiology, vertigo like symptoms, will hearing loss, numbness and description concern for central vs peripheral vertigo, will proceed with imaging to r/o intracranial pathology. Class 1 obesity 12/18/2024 Assessment & Plan (12/19/2024 8:57 AM EDT): Discussed calorie deficit, recommended reduction of 20-30% of maintenance calories; clinical services professional referral offered. Recommended to decrease soda and sugary beverage consumption. Recommended at least 20 g per meal of protein to assist with satiety. Recommended at least 150 min/week of moderate intensity exercise. Blood in stool 12/18/2024 Anxiety with depression 11/15/2020 Other insomnia 11/15/2020 Major depressive disorder, single episode 2015 Overview (12/18/2024): Depression (296.20) Onset: 10/29/2015 Added by: Robin Real Sensorineural hearing loss 04/30/2012 Overview (12/18/2024): Sensorineural hearing loss, NOS (389.10) Onset: 04/30/2012 Added by: Robin Real Assessment & Plan (12/19/2024 8:56 AM EDT): Diagnosis since 2012. Has not followed up, will refer to audiology and ENT. Encounters Date Type Department Care Team Description 12/18/2024 10:45 AM EDT Office Visit [facility] PEDS [address] [place] [address] Tami Lau MD Encounter for immunization (Primary Dx); Encounter for health-related screening; Blood in stool; Chronic left-sided headaches; Dizziness of unknown cause; Sensorineural hearing loss (SNHL), unspecified laterality; Chronic abdominal pain; Class 1 obesity 12/18/2024 Travel 12/17/2024 Telephone [facility] MED & PEDS [address] [place] [address] Tami Lau MD Chart Prep 12/11/2024 Patient Outreach [facility] [address] [place] [address] Yoshi Husain MD Pre-visit Planning (Pre visit planning unable to LVM ) from Last 3 Months Immunizations Immunization Administration Dates Next Due DTaP, 5 pertussis antigens 12/13/2001,,06/16/1997,04/09,02/12/1997 HPV, Quadrivalent 10/31/2013,06/13/2013,04/04/19 14 Hep A, Adult 11/17/2016 Hep B, Adolescent or Pediatric 06/16/1997,1996,1996 Hib (PRP-T) 03/09/1998, 8,04/09/1997,02/12 IPV 12/13/2001,04/09/1997,02/12/1997 Influenza, IIV3, injectable 12/29/2011 Influenza, seasonal, injecta ble, preservative free 05/15/2014,04/04/2013 MMR 12/13/2001,12/08/1997 Meningococcal MCV4P [id number]-135 04/04/2013,05/27/19 09 OPV, Trivalent 06/08/1998 Tdap 12/18/2024,10/31/2013,05/26/2008 Varicella 05/26/2008,12/08/1997 Family History Medical History Relation Name Comments Diabetes Father Heart disease Mother Relation Name Status Comments Father Mother Social History Tobacco Use Types Packs/Day Years [...] Orientation Straight 12/17/2024 9: 57 AM EDT Last Filed Vital Signs Vital Sign Reading [...] Mass Index 33.25 12/18/2024 10:22 AM EDT Plan of Treatment Upcoming Encounters Date Type Department Care Team (Late st Contact Info) Description 02/16/2025 2:00 PM EST Office Visit [facility] MED [facility] PEDS [address] [place] [address] Tami Lau MD [address] [place] [address] Health Maintenance Due Date Last Done Comments Depression Screening 1996 HIV Screening 1996 SDOH Screening 1996 Disability Screening 1996 Alcohol/Substance Use Screening 2008 Family Planning (PISQ) 12/03/2011 Hepatitis C Screening 2014 COVID-19 Vaccine ( season) 2024 Influenza Vaccine (#1) 2024 5, 04/04/2013, 12/29/2011 Tobacco Screening 12/18/2025 12/18/2024 DTaP/Tdap/Td Vaccines (9 - Td or Tdap) 12/18/2034 12/18/2024, 10/31/2013, 05/26/2008, Additional history exists Zoster Vaccines (1 of 2) 2046 RSV [...] patient's age to complete this topic Insurance [address] [place], [place] [address] C[employer] Care Teams Painter Spray Relationship Specialty Start Date End Date Tami Lau MD [address] [place] [id number] PCP - General Family Medicine 12/18/24
--- OUTSIDE RECORDS SUMMARY | 2024-12-19 13:59 | XMS_ITS | Encounter Summary ---
Author Organization [employer] [facility] Address [address] [facility] 7t [place] [address] Care Team Providers Care High School Math Tutor Name Role Phone Unavailable Primary Care Provider Unavailabl e Reason for Visit * Reason Onset Date Comments Chart Prep 12/17/2024 Encounter Details Date Type Department Care Team (Late st Contact Info) Description 12/17/2024 Telephone [facility] MED & PEDS [address] [place] [address] Tami Lau MD [address] [place] [address] Chart Prep Social History Tobacco Use Types Packs/Day Years Used Date Smoking Tobacco: Never Assessed Sex and Gender Information Value Date Recorded Sex Assigned at Male 04/24/2023 2:07 PM EST Legal Sex Male 2:06 PM EST Gender Identity Male 12/17/2024 9:57 AM EDT Sexual Orientation Straight 12/17/2024 9: 57 AM EDT documented as of this encounter Miscellaneous Notes * Telephone Encounter - Jayda Holman MA - 12/17/2024 3:12 PM EDT Chart Prep Labs: not applicable Images: not applicable Referrals: not applicable Vaccines due: due Screenings: STI screening Overdue care gaps: SBIRT, SDOH, PHQ-9, Disability screen, and Tobacco documented in this encounter Plan of Treatment Upcoming Encounters Date Type Department Care Team (Late st Contact Info) Description 02/16/2025 2:00 PM EST Office Visit [facility] MED & PEDS [address] [place] [address] Tami Lau MD [address] [place] [address] documented as of this encounter Visit Diagnoses Not on filedocumented in this encounter
[2025-01-06 09:26] VITALS: BMI 31.0
--- NOTE | 2025-01-06 10:34 | HO.ANESPROP2 ---
Documented by User: Nae Hayes NP 01/06/25 10:35 HPI - Anesthesia Eval Consult details Narrative: 29 yr old male for colonoscopy PMFSH Active Problems Active Problems: All Active Problems Suprapubic cramping (Acute) Diarrhea (Acute) Bloody stools (Acute) Arm pain, left (Acute) Chest tightness (Acute) Weakness (Acute) Anxiety and depression (Acute) Ingrown nail of great toe of left foot (Acute) Laboratory tests ordered as part of a complete physical exam (CPE) (Acute) Past Medical History Medical History Acid reflux Depression Severe anxiety Family History Family History Mother No family history of mental disorder Asthma Hypertension High cholesterol Maternal Grandmother Hypertension Other Mental health disorder Substance abuse Surgical History Surgical History No pertinent past surgical history Social History Social History Household Members: Family Housing: Apartment Alcohol intake: current Alcohol intake frequency: does not drink Alcohol type: beer Patient Tobacco Use Status: Never used Tobacco e-Cigarette/Vaping Use: Former Use Substance Use Type: Marijuana Are you DNR?: No Advance Directives: No Advance Directives Information Provided: Yes service: No Current occupational status: unemployed Cognitive needs: No Hearing needs: Yes Vision needs: No Meds Allergies Allergy/AdvReac Type Severity Reaction Status Date / Time No Known Allergies Allergy Verified 12/17/24 11:21 Home Medications ?Medication ?Instructions ?Recorded ?Confirmed ?Last Taken ?Type No Known Home Meds 01/08/25 01/08/25 Unknown History Exam Height,Weight and Vital Signs: Height 6 ft 1 in Weight 106.594 kg Documented by User: Yoli Patel MD 01/08/25 09:15 [facility] Past Medical History Medical History Acid reflux Depression Severe anxiety Family History Family History Mother No family history of mental disorder Asthma Hypertension High cholesterol Maternal Grandmother Hypertension Other Mental health disorder Substance abuse Family history of problems with anesthesia: No Surgical History Surgical History No pertinent past surgical history History of Problems with Anesthesia: No Social History Social History Household Members: Family Housing: Apartment Alcohol intake: current Alcohol intake frequency: does not drink Alcohol type: beer Patient Tobacco Use Status: Never used Tobacco e-Cigarette/Vaping Use: Former Use Substance Use Type: Marijuana Are you DNR?: No Advance Directives: No Advance Directives Information Provided: Yes service: No Current occupational status: unemployed Cognitive needs: No Hearing needs: Yes Vision needs: No Meds Allergies Allergy/AdvReac Type Severity Reaction Status Date / Time No Known Allergies Allergy Verified 12/17/24 11:21 Home Medications ?Medication ?Instructions ?Recorded ?Confirmed ?Last Taken ?Type No Known Home Meds 01/08/25 01/08/25 Unknown History Exam Airway Mallampati Class: II (missing one, denies Nything loose) TM Dist: >3cm Neck ROM: Full Heart: rrr Lungs: cta Assessment and Plan Assessment Anesthesia Assessment: Anesthesia Plan Discussed and Chart Reviewed Final Anesthetic Review Family History of Problems with Anesthesia: No History of Problems with Anesthesia: No NPO: Yes ASA Class: II Final Preanesthetic Review: No Changes in Pt Med Stat, Meds/Allgs Chart Reviewed and Consent Obtained/Reviewed Patient Risk: Low Procedure Risk: Low Anesthetic Plan Anesthetic Plan: MAC: Disposition: Standard PACU
--- NOTE | ~2025-01-08 | CT_ITS ---
EXAMINATION: CT ABDOMEN AND PELVIS WITH CONTRAST CLINICAL INFORMATION: Appendicitis COMPARISON: None available. TECHNIQUE: Multidetector volumetric images were obtained from the superior aspect of the liver through the pubic symphysis following administration 85 cc of Omnipaque 350 intravenous contrast. Sagittal and coronal reformatted images were obtained on the technologist's workstation. Oral contrast: No This CT examination was performed using dose optimization techniques as appropriate, variously including the following: *Automated exposure control *Adjustment of mA and/or kV according to patient size (this includes techniques or standardized protocols for targeted exams where dose is matched to indication/reason for exam; i.e. extremities or head) *Use of iterative reconstruction technique FINDINGS: LUNG BASES: Lung bases are clear. No pleural effusions. LIVER: No focal lesions. GALLBLADDER AND BILIARY TREE: Normal gallbladder. No gallstones. No biliary ductal dilatation. PANCREAS: Unremarkable. SPLEEN: Unremarkable. ADRENAL GLANDS: No nodules. KIDNEYS AND URETERS: No focal renal lesions or stones, or hydronephrosis. GASTROINTESTINAL TRACT: The small and large bowel are unremarkable. The appendix is not identified, however, there are no pericecal inflammatory changes. ABDOMINAL WALL: No significant hernia is appreciated. LYMPH NODES: Prominent mesenteric lymph nodes in the right right lower quadrant, measuring up to 1.1 cm in short axis, for example on 7:32/87 and 7:34/87. VASCULAR: No abdominal aortic aneurysm. PELVIC VISCERA: Partially distended urinary bladder is unremarkable. No suspicious pelvic masses. OSSEOUS STRUCTURES: No acute or suspicious abnormalities. CT/CT abdomen pelvis w IV con IMPRESSION: 1. No acute findings in the abdomen/pelvis. Normal appendix is not identified, however, there are no pericecal inflammatory changes to suggest appendicitis. 2. Prominent mesenteric lymph nodes in the right lower quadrant, likely reflecting reactive nonspecific mesenteric adenitis. Electronically signed by: Kenny Edmondson MD 01/08/2025 10:46 AM EDT
[2025-01-08 08:37] VITALS: PULSE 108; RESP 18; TEMP 36.9; O2SAT 97; BMI 33.2
[2025-01-08 08:52] VITALS: BP 151/84
[2025-01-08] MEDS: Lactated Ringers 1,000 ML 100 ML IVCONT (08:56)
--- NOTE | 2025-01-08 09:07 | MHC.SHP ---
Pre-Procedural Eval Section A - 24 Hr Update-Section A only Date of Service: 01/08/25 The patient is an INPATIENT: No The patient has been examined within 24 hours of the surgical procedure. The History & Physical has been completed within 30 days and I have reviewed it.: Yes Section B - Complete if H&P > 30 days Chief Complaint: change in bowel habits, rectal bleeding Allergies: Allergies Allergy/AdvReac Type Severity Reaction Status Date / Time No Known Allergies Allergy Verified 12/17/24 11:21 Plan Diagnosis/Plan: Unchanged I have reviewed the history and physical and performed a pertinent physical examination on my patient. No changes have occurred unless specified. Time Spent With Patient Time: Total time managing care of this patient today ____ minutes.
--- NOTE | 2025-01-08 09:59 | P.OP_ITS ---
Operative Note Operative Note Date of Service: 01/08/25 Narrative: Procedure: Colonoscopy Indication: [Screening] [Personal history of polyps] [Chronic Diarrhea] [Lower GI bleeding] [Anemia] [+ FIT test] [Family history of colon cancer] Endoscopist: Lily Delatorre MD Anesthesia Provider: Anesthesia type: [MAC] [General Anesthesia] Instrument: Olympus PCF-H190L Consent: Indication, risks vs benefits, and alternatives were discussed with the patient who gave written informed consent to proceed. [An functional tester typewriters was utilized to assist with the consent]. Monitoring: EKG, pulse, pulse oximetry and blood pressure were monitored throughout the procedure. Please see anesthesia flowsheet. Procedure: The patient was brought to the procedure room and placed in the left lateral decubitus position. IV medications were administered by the anesthesia provider in attendance. A digital rectal exam was performed which was [normal] [abnormal due to finding of hemorrhoids, anal tag, anal fistula]. The colonoscope was then inserted through the anus and advanced through the colon to the cecum at [cm,][and terminal ileum]. Mucosa was carefully examined under high definition white light as the instrument was slowly withdrawn in a retrograde panoramic fashion. Retroflexion was performed in [ascending colon and] rectum. The procedure was [not difficult] [somewhat difficult]. There were no immediate obvious complications. The quality of the prep was BBPS: []+[]+[] = [adequate] [inadequate in] Withdrawal time [] minutes. Limitations: [No limitations.] [Poor prep.] Findings: Mucosa: [Normal to cecum and terminal ileum.] [Loss of normal vacular pattern] [Erythema and congestion] [Erosions and ulceration] [Cobblestoning] [Random biopsies were taken to r/o microscopic colitis] [Cold forceps biopsies were taken from [colon] and sent for histology.] Protruding lesions: * [] [sessile] [semi-pedunculated] [pedunculated] polyp of size [] mm in []colon. Cold snare polypectomy was performed. The polyp was completely removed and retrieved. * [] [sessile] [semi-pedunculated] [pedunculated] polyp of size [] mm in []colon. Cold snare polypectomy was performed. The polyp was completely removed and retrieved. * [] [sessile] [semi-pedunculated] [pedunculated] polyp of size [] mm in []colon. Cold snare polypectomy was performed. The polyp was completely removed and retrieved. * [Medium] [Large] external hemorrhoids [without] stigmata of recent bleeding. Excavated lesions: * [Small] [Medium] [Large] diverticulosis of [sigmoid] [left sided] [whole] colon. Impression: 1. Normal colon mucosa 2. Total of [] polyps removed from [cecum,] [ascending,] [transverse,] [descendi ng,] [and sigmoid] colon [and rectum]. 3. External hemorrhoids Recommendations: - Follow path results. - Repeat colonoscopy in [3] [5-7] [7-10] years if polyps are adenomas or sessile serrated.
--- NOTE | 2025-01-08 10:00 | P.OPN-COLO_ITS ---
Colonoscopy Operative Note Operative Note Date of Service: 01/08/25 Narrative: Procedure: Colonoscopy Indication: Change in bowel habits, rectal bleeding Endoscopist: Lily Delatorre MD Anesthesia Provider: Keke Nunn CRNA Anesthesia type: MAC Instrument: Olympus [id number]-H190L Consent: Indication, risks vs benefits, and alternatives were discussed with the patient who gave written informed consent to proceed. EKG, pulse, pulse oximetry and blood pressure were monitored throughout the procedure. Please see anesthesia flowsheet. Procedure: The patient was brought to the procedure room and placed in the left lateral decubitus position. IV medications were administered by the anesthesia provider in attendance. A digital rectal exam was performed which was normal. A distal attachment cap was affixed to the tip of the colonoscope which was then inserted through the anus and advanced through the colon to the cecum at 70 cm,and terminal ileum. Appendiceal orifice and ileocecal valve were identified. Mucosa was carefully examined under high definition white light as the instrument was slowly withdrawn in a retrograde panoramic fashion. Retroflexion was performed in rectum. The procedure was not difficult. There were no immediate obvious complications. The quality of the prep was BBPS: 3+3+3 = adequate Withdrawal time 10 minutes. Limitations: No limitations. Findings: Mucosa: Focal jose manuel-appendiceal inflammation noted with whitish exudates noted in the appendiceal orifice. Remaining colon was normal on endoscopic exam. Terminal ileum mucosa was also normal. Cold forceps Biopsies were taken from cecum, ascending, transverse, descending, sigmoid colon and rectum for histological evaluation. Protruding lesions: * Medium internal hemorrhoids without stigmata of recent bleeding. Impression: 1. Localized periappendiceal inflammation suspicious for underlying appendicitis 2. Internal hemorrhoids Recommendations: - CT abd/pel with IV contrast - Follow path results. - Further management contingent on results
[2025-01-08 10:01] VITALS: BP 117/60; PULSE 83; RESP 18; TEMP 36.4; O2SAT 97
[2025-01-08 10:08] VITALS: BP 122/66; PULSE 84; RESP 16; O2SAT 97
[2025-01-08 10:13] VITALS: BP 129/74; PULSE 73; RESP 16; O2SAT 97
[2025-01-08 10:25] VITALS: BP 133/112; PULSE 83; RESP 18; TEMP 36.7; O2SAT 97
== END 2025-01-08 11:33 | disposition home or self-care (01) ==
PROVIDERS: PCP Nurse Practitioner Family; Visit Provider Internal Medicine
PROC: 0DJD8ZZ Inspection of Lower Intestinal Tract, Via Natural or Artificial Opening Endoscopic (ICD-10-PCS; CPT 45378; principal; 2025-01-08 10:20)
DX: R19.4 Change in bowel habit (principal); K62.5 Hemorrhage of anus and rectum; K52.9 Noninfective gastroenteritis and colitis, unspecified; K63.89 Other specified diseases of intestine; K64.8 Other hemorrhoids
CPT/HCPCS: 45380; 74177; 88305; J2003; J2704

== ENCOUNTER → 2025-01-08 08:36 | Outpatient (BNV) | payer MEDICAID, SELFPAY | PROVIDERS: PCP Nurse Practitioner Family; Visit Provider Internal Medicine | DX: K62.5 Hemorrhage of anus and rectum (principal); R19.4 Change in bowel habit; K35.30 Acute appendicitis with localized peritonitis, without perforation or gangrene; K64.8 Other hemorrhoids | CPT/HCPCS: 45380 ==

== ENCOUNTER → 2025-01-08 09:59 | Outpatient (BNV) | payer MEDICAID, SELFPAY | PROVIDERS: PCP Nurse Practitioner Family; Visit Provider Radiology Body Imaging | DX: K37 Unspecified appendicitis (principal) | CPT/HCPCS: 74177 ==